=== PATIENT | female | born 1945 | race Native Hawaiian/Other Pacific Islander ===

== ENCOUNTER 2018-06-30 13:19 | Inpatient (IN) | payer MEDICARE, OTHER ==
[~2018-06-30] VITALS: Ht 154.9 cm; Wt 50.8 kg
--- NOTE | 2018-06-30 13:22 | NUR ---
[facility] FROM [facility] WITH C/O ABNORMAL LABS (ELEVALTED WBC). 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
[2018-06-30] MEDS ORDERED: ADENOSINE 6 MG/2 ML SYR IV ONE ×2 (13:33→13:45)
--- NOTE | 2018-06-30 13:50 | NUR ---
pt to ct
[2018-06-30] MEDS ORDERED: MIRT15TA7 PO (13:51)
[2018-06-30] MEDS ORDERED: FAMO20TA8 PO (13:51)
[2018-06-30] MEDS ORDERED: ATOR80TA PO (13:51)
[2018-06-30] MEDS ORDERED: DRON2.5C11 PO (13:51)
[2018-06-30] MEDS ORDERED: ACID1TAB4 PO (13:51)
[2018-06-30] MEDS ORDERED: ACET325T53 PO (13:51)
[2018-06-30] MEDS ORDERED: TIZA4TAB4 PO (13:51)
[2018-06-30] MEDS ORDERED: CALC500T3 PO (13:51)
[2018-06-30] MEDS ORDERED: BISA-79 PO (13:51)
[2018-06-30] MEDS ORDERED: MULT-225 PO (13:51)
[2018-06-30] MEDS ORDERED: BENA10TA9 PO (13:51)
[2018-06-30] MEDS ORDERED: METO25TA6 PO (13:51)
[2018-06-30] MEDS ORDERED: CEFT1VIA14 IJ (13:51)
[2018-06-30] MEDS ORDERED: POLY119P17 PO (13:51)
[2018-06-30] MEDS ORDERED: CHOL200078 PO (13:51)
[2018-06-30] MEDS ORDERED: OXYC-128 PO (13:51)
[2018-06-30] MEDS ORDERED: MAGN400T6 PO (13:51)
[2018-06-30 13:52] LABS: BASOPHILS % (AUTO) 0.2 % (0.0-2.0); EOSINOPHILS # (AUTO) 0.1 K/uL (0.0-0.7); EOSINOPHILS % (AUTO) 0.7 % (0.0-7.0); HEMOGLOBIN 14.4 g/dL (10.9-14.3); LYMPHOCYTES # (AUTO) 2.8 K/uL (20.0-40.0); LYMPHOCYTES % (AUTO) 25.5 % (20.5-51.5); MEAN CORPUSCULAR HEMOGLOBIN 30.2 uug (24.7-32.8); MEAN CORPUSCULAR HGB CONC 33 g/dL (32.3-35.6); MEAN CORPUSCULAR VOLUME 92.2 fL (75.5-95.3); MONOCYTES # (AUTO) 0.8 K/uL (2.0-10.0); MONOCYTES % (AUTO) 7.1 % (0.0-11.0); NEUTROPHILS # (AUTO) 7.2 K/uL (1.8-8.9); NEUTROPHILS % (AUTO) 66.5 % (38.5-71.5); PLATELET COUNT (AUTO) 314 K/uL (179-408); RED BLOOD CELL COUNT(AUTO) 4.77 MIL/uL (3.63-4.92); WHITE BLOOD COUNT (AUTO) 10.9 K/uL (3.8-11.8)
[2018-06-30 13:57] LABS: *BILIRUBIN,URIN NEGATIVE (NEGATIVE); *BLOOD, URINE 1+ (NEGATIVE); *CLARITY,URINE CLOUDY (CLEAR); *COLOR,URINE DARK YELLOW (YELLOW); *KETONES,URINE 2+ (NEGATIVE); *UROBILINOGEN,URINE 0.2 E.U./dl (NORMAL); LEUKOCYTE ESTERASE ,URINE 3+ (NEGATIVE); NITRITE, URINE NEGATIVE (NEGATIVE); PH,URINE 5.5 (5.0-8.0); UGLUCOSE NEGATIVE (NEGATIVE)
[2018-06-30 13:58] LABS: CARBON DIOXIDE 25 mmol/L (21-32); CHLORIDE 98 mmol/L (98-107); CREATININE 1.2 mg/dL (0.6-1.3); GLUCOSE 117 mg/dL (74-106); UREA NITROGEN, BLOOD 18 mg/dL (7-18)
[2018-06-30 14:04] LABS: ALANINE AMINOTRANSFERASE 26 U/L (14-59); ALKALINE PHOSPHATASE 133 U/L (50-136); ASPARTATE AMINOTRANSFERASE 34 U/L (15-37); BILIRUBIN,DIRECT 0.1 mg/dL (0.0-0.2); BILIRUBIN,TOTAL 0.4 mg/dL (0.2-1.0); TOTAL PROTEIN, SERUM 8.7 g/dL (6.4-8.2)
--- NOTE | 2018-06-30 14:06 | NUR ---
hands off report given to ricky yang lvn.
[2018-06-30 14:07] LABS: WBC,URINE TNTC /HPF (0-3)
[2018-06-30 14:08] LABS: BACTERIA,URINE NONE SEEN /HPF (NONE SEEN)
[2018-06-30 14:09] LABS: SQUAMOUS EPITHELIAL CELL,UR FEW /HPF (NONE SEEN); YEAST,URINE MANY /HPF (NONE SEEN)
[2018-06-30 14:10] LABS: COARSE GRANULAR CASTS,URINE 0-3 /LPF
[2018-06-30 14:26] LABS: THYROID STIMULATING HORMONE 1.489 mIU/mL (0.358-3.740)
--- NOTE | 2018-06-30 14:59 | NUR ---
pt establishing eye contact and answering guestion with single word response
[2018-06-30] MEDS ORDERED: CEFTRIAXONE 1 G VIAL ONE (15:08)
[2018-06-30] MEDS ORDERED: CEFTRIAXONE 1 G in IV DEXTROSE 5% 50 ML IV ONE (15:15)
[2018-06-30] MEDS ORDERED: IV NORMAL SALINE 1000 ML BAG IV ONE (15:15)
[2018-06-30] MEDS ORDERED: SULFAMETHOXAZOL/TRIMETHOPRI IV 20 ML in IV DEXTROSE 5% 500 ML IV ONE (15:15)
[2018-06-30] MEDS ORDERED: SULFAMETHOXAZOLE/TRIMETHOPRIM 10 ML VIAL IV ONE (15:32)
--- NOTE | 2018-06-30 16:09 | NUR ---
perineal hygiene provided for pt. small amount of bm in diaper.
--- NOTE | 2018-06-30 16:25 | NUR ---
pt transfered to floor.
[2018-06-30 16:46] VITALS: BP 160/89
[2018-06-30 20:03] VITALS: BP 163/95
[2018-06-30] MEDS ORDERED: MIRTAZAPINE 15 MG TABLET PO SCH (21:00)
[2018-06-30] MEDS ORDERED: ONDANSETRON 4 MG/2 ML VIAL IV PRN (21:00)
[2018-06-30] MEDS ORDERED: ACETAMINOPHEN 325 MG TABLET PO PRN (21:00)
--- NOTE | 2018-06-30 21:00 | NUR ---
Patient awake and alert in bed. Patient is nonverbal, not appearing in any distress at this time. IV intact and patent. Rosen catheter in place with clear, yellow urine output. Orders received from Dr. Lucio and Dr. Oropeza. Bed in lowest and locked position. Safety measures implemented. Will continue to monitor throughout shift.
[2018-06-30] MEDS: IV D5/ 0.9% NACL 1,000 ML IV PRN (21:27)
[2018-06-30] MEDS: FAMOTIDINE 20 MG TABLET PO SCH (21:35)
[2018-06-30] MEDS: ATORVASTATIN 40 MG TABLET PO SCH (21:35)
[2018-06-30] MEDS: DRONABINOL 2.5 MG CAPSULE PO SCH (21:36)
[2018-06-30] MEDS: METOPROLOL TARTRATE 25 MG TABLET PO SCH (21:46)
[2018-06-30] MEDS ORDERED: TIZANIDINE HCL 4 MG TABLET PO SCH (22:00)
[2018-07-01] VITALS: BP 127/65
[2018-07-01] MEDS: ENOXAPARIN SODIUM 40 MG/0.4 ML DISP.SYRIN SQ SCH ×2 (00:16→21:50)
[2018-07-01 04:00] VITALS: BP 154/82
--- NOTE | 2018-07-01 06:39 | NUR ---
Patient rested well in between care. Patient turned and repositioned q2hr. All needs met. Continue plan of care.
[2018-07-01 06:54] LABS: BASOPHILS % (AUTO) 0.5 % (0.0-2.0); EOSINOPHILS # (AUTO) 0.2 K/uL (0.0-0.7); LYMPHOCYTES # (AUTO) 1.2 K/uL (20.0-40.0); LYMPHOCYTES % (AUTO) 12.5 % (20.5-51.5); MEAN CORPUSCULAR HEMOGLOBIN 30.5 uug (24.7-32.8); MEAN CORPUSCULAR HGB CONC 33 g/dL (32.3-35.6); MEAN CORPUSCULAR VOLUME 93.1 fL (75.5-95.3); MONOCYTES # (AUTO) 0.4 K/uL (2.0-10.0); MONOCYTES % (AUTO) 4.4 % (0.0-11.0); NEUTROPHILS # (AUTO) 7.7 K/uL (1.8-8.9); NEUTROPHILS % (AUTO) 80.6 % (38.5-71.5); RED BLOOD CELL COUNT(AUTO) 4.06 MIL/uL (3.63-4.92); WHITE BLOOD COUNT (AUTO) 9.5 K/uL (3.8-11.8)
[2018-07-01 07:05] LABS: HEMATOCRIT 37.8 % (31.2-41.9); HEMOGLOBIN 12.4 g/dL (10.9-14.3); PLATELET COUNT (AUTO) 160 K/uL (179-408)
[2018-07-01 07:13] LABS: CARBON DIOXIDE 22 mmol/L (21-32); CHLORIDE 107 mmol/L (98-107); CHOLESTEROL 178 mg/dL (<200); CREATININE 1.1 mg/dL (0.6-1.3); GLUCOSE 132 mg/dL (74-106); HDL CHOLESTEROL 51 mg/dL (40-60); MAGNESIUM 1.7 mg/dL (1.8-2.4); PHOSPHOROUS 2.5 mg/dL (2.5-4.9); POTASSIUM 4.4 mmol/L (3.5-5.1); TRIGLYCERIDES 81 MG/DL (30-150); UREA NITROGEN, BLOOD 11 mg/dL (7-18)
[2018-07-01] MEDS ORDERED: BISACODYL 5 MG TABLET.DR PO PRN (07:30)
[2018-07-01] MEDS ORDERED: OXYCODONE/APAP 5-325 MG TABLET PO PRN (07:30)
[2018-07-01] MEDS ORDERED: ACETAMINOPHEN 325 MG TABLET PO PRN (07:30)
[2018-07-01 07:50] LABS: THYROID STIMULATING HORMONE 0.544 mIU/mL (0.358-3.740)
[2018-07-01] MEDS: MAGNESIUM OXIDE 400 MG TABLET PO SCH (08:17)
[2018-07-01] MEDS: CHOLECALCIFEROL 1,000 UNIT TABLET PO SCH (08:17)
[2018-07-01] MEDS: CALCIUM CARBONATE 500 MG TABLET PO SCH (08:17)
[2018-07-01] MEDS: MULTIVITAMINS,THERAPEUTIC TABLET PO SCH (08:17)
[2018-07-01] MEDS: DRONABINOL 2.5 MG CAPSULE PO SCH ×2 (08:17→16:51)
[2018-07-01] MEDS: METOPROLOL TARTRATE 25 MG TABLET PO SCH ×2 (08:17→21:00)
[2018-07-01] MEDS: ACIDOPHILUS/BULGARICUS CHEW TAB PO SCH ×2 (08:17→16:51)
[2018-07-01] MEDS: MIRALAX 17 GM POWD.PACK PO SCH (08:18)
[2018-07-01] MEDS: BENAZEPRIL HCL 10 MG TABLET PO SCH (08:18)
[2018-07-01] MEDS ORDERED: METOPROLOL TARTRATE 25 MG TABLET PO SCH (09:00)
[2018-07-01] MEDS ORDERED: POLYETHYLENE GLYCOL 3350 238 GM POWDER PO SCH (09:00)
[2018-07-01] MEDS ORDERED: DRONABINOL 2.5 MG CAPSULE PO SCH (09:00)
[2018-07-01] MEDS ORDERED: MAGNESIUM SULFATE/D5W 100 ML IV SCH (10:30)
[2018-07-01] MEDS: IV D5/ 0.9% NACL 1,000 ML IV PRN (10:55)
[2018-07-01 11:29] VITALS: BP 139/78
[2018-07-01] MEDS ORDERED: Z GUARD REMEDY PASTE 57 GM TUBE TOP PRN (11:30)
--- NOTE | 2018-07-01 11:30 | NUR ---
WOUND CARE CONSULT: PT PRESENTS WITH SACRAL AREA SCARRING AND STAINING OF SKIN WHICH EXTENDS TO BUTTOCKS AND RED AREA TO LEFT HEEL, PRESENT ON ADMISSION. RECOMMENDATIONS MADE FOR SKIN PROTECTION. DISCUSSED WITH NURSING STAFF. FIRST STEP LOW AIRLOSS MATTRESS ORDERED. WILL SEE PRN. BISHOP IN AGREEMENT WITH PLAN OF CARE. Addendum: 07/01/18 at 1131 by GERBER BEYER RN Amended: Links added.
[2018-07-01] MEDS: TIZANIDINE HCL 4 MG TABLET PO SCH ×2 (14:15→21:51)
[2018-07-01] MEDS: FLUCONAZOLE 200 MG/NS 100ML IV 100 MG in PREMIXED 1 EACH IV SCH (14:24)
[2018-07-01] MEDS: CEFTRIAXONE 1 G in IV DEXTROSE 5% 50 ML IV SCH (14:28)
[2018-07-01 15:22] VITALS: BP 129/78
[2018-07-01 20:00] VITALS: BP 104/55
[2018-07-01] MEDS ORDERED: MIRTAZAPINE 15 MG TABLET PO SCH (21:00)
[2018-07-01] MEDS ORDERED: FAMOTIDINE 20 MG TABLET PO SCH (21:00)
[2018-07-01] MEDS: Z GUARD REMEDY PASTE 57 GM TUBE TOP SCH (21:00)
[2018-07-01] MEDS ORDERED: ATORVASTATIN 40 MG TABLET PO SCH (21:00)
[2018-07-01] MEDS: FAMOTIDINE 20 MG TABLET PO SCH (21:50)
[2018-07-01] MEDS: ATORVASTATIN 40 MG TABLET PO SCH (21:51)
--- NOTE | 2018-07-01 22:00 | NUR ---
NOT WILLING TO ALLOW TO GO THRU [facility]KE [facility]ALE STATED " CAN'T YOU SEE THAT I WANT TO GET SOME SLEEP" THE PROMISED ME THAT i COULD HAVE ANYTHNG I WANTED" BEATRIZ WITH EQUAL STRENGTH,
[2018-07-02] VITALS (7 sets, daily range): BP systolic 100–154; BP diastolic 46–91
[2018-07-02] MEDS: IV D5/ 0.9% NACL 1,000 ML IV PRN ×2 (03:00→19:01)
[2018-07-02] MEDS: TIZANIDINE HCL 4 MG TABLET PO SCH ×3 (05:57→21:12)
[2018-07-02 06:50] LABS: BASOPHILS # (AUTO) 0.1 K/uL (0.0-8.0); BASOPHILS % (AUTO) 0.7 % (0.0-2.0); EOSINOPHILS # (AUTO) 0.2 K/uL (0.0-0.7); EOSINOPHILS % (AUTO) 3.3 % (0.0-7.0); HEMATOCRIT 32.5 % (31.2-41.9); HEMOGLOBIN 10.7 g/dL (10.9-14.3); LYMPHOCYTES # (AUTO) 1.8 K/uL (20.0-40.0); LYMPHOCYTES % (AUTO) 25.9 % (20.5-51.5); MEAN CORPUSCULAR HEMOGLOBIN 30.2 uug (24.7-32.8); MEAN CORPUSCULAR HGB CONC 33 g/dL (32.3-35.6); MEAN CORPUSCULAR VOLUME 92.1 fL (75.5-95.3); MONOCYTES # (AUTO) 0.5 K/uL (2.0-10.0); MONOCYTES % (AUTO) 6.7 % (0.0-11.0); NEUTROPHILS # (AUTO) 4.5 K/uL (1.8-8.9); NEUTROPHILS % (AUTO) 63.4 % (38.5-71.5); PLATELET COUNT (AUTO) 198 K/uL (179-408); RED BLOOD CELL COUNT(AUTO) 3.53 MIL/uL (3.63-4.92); WHITE BLOOD COUNT (AUTO) 7.1 K/uL (3.8-11.8)
--- NOTE | 2018-07-02 07:00 | NUR ---
HAD UNEVENTFUL NIGHT SLEPT OFF/ON, NO DISTRESS NOTED.
[2018-07-02 07:08] LABS: ALANINE AMINOTRANSFERASE 18 U/L (14-59); ALKALINE PHOSPHATASE 97 U/L (50-136); ASPARTATE AMINOTRANSFERASE 16 U/L (15-37); BILIRUBIN,TOTAL 0.3 mg/dL (0.2-1.0); CARBON DIOXIDE 22 mmol/L (21-32); CHLORIDE 108 mmol/L (98-107); CREATININE 1.1 mg/dL (0.6-1.3); GLUCOSE 132 mg/dL (74-106); MAGNESIUM 2.1 mg/dL (1.8-2.4); PHOSPHOROUS 1.8 mg/dL (2.5-4.9); POTASSIUM 3.7 mmol/L (3.5-5.1); TOTAL PROTEIN, SERUM 6.5 g/dL (6.4-8.2); UREA NITROGEN, BLOOD 7 mg/dL (7-18)
--- NOTE | 2018-07-02 07:38 | NUR ---
Patient resting comfortably in bed at this time. no signs of distress. bedrest. A/Ox1. SR on telemetry. RA. IVF running. call light within reach of patient. bed alarm on. safety measures implemented. will continue to monitor.
[2018-07-02] MEDS: CHOLECALCIFEROL 1,000 UNIT TABLET PO SCH (08:46)
[2018-07-02] MEDS: ACIDOPHILUS/BULGARICUS CHEW TAB PO SCH ×2 (08:47→16:27)
[2018-07-02] MEDS: MAGNESIUM OXIDE 400 MG TABLET PO SCH (08:47)
[2018-07-02] MEDS: DRONABINOL 2.5 MG CAPSULE PO SCH ×2 (08:47→16:27)
[2018-07-02] MEDS: METOPROLOL TARTRATE 25 MG TABLET PO SCH ×2 (08:47→20:15)
[2018-07-02] MEDS: CALCIUM CARBONATE 500 MG TABLET PO SCH (08:48)
[2018-07-02] MEDS: MIRALAX 17 GM POWD.PACK PO SCH (08:48)
[2018-07-02] MEDS: MULTIVITAMINS,THERAPEUTIC TABLET PO SCH (08:48)
[2018-07-02] MEDS: BENAZEPRIL HCL 10 MG TABLET PO SCH (08:48)
[2018-07-02] MEDS: Z GUARD REMEDY PASTE 57 GM TUBE TOP SCH ×2 (08:49→21:12)
[2018-07-02] MEDS: CEFTRIAXONE 1 G in IV DEXTROSE 5% 50 ML IV SCH (14:06)
[2018-07-02 15:07] LABS: A/G RATIO 0.9 (0.7-1.7); ALBUMIN 3.2 g/dL (2.9-4.4); ALPHA-1-GLOBULIN 0.3 g/dL (0.0-0.4); ALPHA-2-GLOBULIN 1.1 g/dL (0.4-1.0); BETA GLOBULIN 0.9 g/dL (0.7-1.3); GAMMA GLOBULIN 1.3 g/dL (0.4-1.8); GLOBULIN, TOTAL 3.6 g/dL (2.2-3.9); M-SPIKE Not Observed g/dL (Not Observed)
[2018-07-02] MEDS ORDERED: NEUTRA PHOS PACKET PO ONE (15:45)
[2018-07-02] MEDS: FLUCONAZOLE 200 MG/NS 100ML IV 100 MG in PREMIXED 1 EACH IV SCH (15:50)
--- NOTE | 2018-07-02 18:14 | NUR ---
patient resting comfortably in bed. IVF running. no signs of distress. no significant changes throughout shift. ABX administered. Wound care provided. SR on telemetry. Rosen in-place, intact, patent. Bed alarm on, call light within reach. KCI mattress on. safety measures implemented. will continue to monitor until end of shift.
[2018-07-02] MEDS: FAMOTIDINE 20 MG TABLET PO SCH (20:11)
[2018-07-02] MEDS: ATORVASTATIN 40 MG TABLET PO SCH (20:14)
[2018-07-02] MEDS: ENOXAPARIN SODIUM 40 MG/0.4 ML DISP.SYRIN SQ SCH (20:16)
[2018-07-03 03:23] VITALS: BP 168/82
[2018-07-03] MEDS: TIZANIDINE HCL 4 MG TABLET PO SCH ×2 (05:26→14:03)
--- NOTE | 2018-07-03 06:04 | NUR ---
received patient resting in bed. patient is alert and oriented x1. Patient is compliant with medication administration and medical care/treatment. IV fluids running. New IV has been in placed in right wrist with 20 gauge. Patient has 2 watery stools during the shift.Will endorse to oncoming nurse for third episode of watery stool and follow c.diff protocol. Patient denies any pain. No respiratory distress or comfort noted through out the shift. Patient temperature elevated to 99.1 Fahrenheit. Tylenol was given to patient and latest temperature was 97.9. Will continue to monitoe and endorse POC to oncoming shift nurse.
[2018-07-03 06:31] LABS: BASOPHILS # (AUTO) 0.1 K/uL (0.0-8.0); BASOPHILS % (AUTO) 0.7 % (0.0-2.0); EOSINOPHILS # (AUTO) 0.2 K/uL (0.0-0.7); EOSINOPHILS % (AUTO) 3.7 % (0.0-7.0); HEMATOCRIT 35.3 % (31.2-41.9); HEMOGLOBIN 11.7 g/dL (10.9-14.3); LYMPHOCYTES # (AUTO) 1.9 K/uL (20.0-40.0); LYMPHOCYTES % (AUTO) 28.5 % (20.5-51.5); MEAN CORPUSCULAR HEMOGLOBIN 30.4 uug (24.7-32.8); MEAN CORPUSCULAR HGB CONC 33 g/dL (32.3-35.6); MEAN CORPUSCULAR VOLUME 91.9 fL (75.5-95.3); MONOCYTES # (AUTO) 0.5 K/uL (2.0-10.0); MONOCYTES % (AUTO) 6.9 % (0.0-11.0); NEUTROPHILS % (AUTO) 60.2 % (38.5-71.5); PLATELET COUNT (AUTO) 232 K/uL (179-408); RED BLOOD CELL COUNT(AUTO) 3.84 MIL/uL (3.63-4.92); WHITE BLOOD COUNT (AUTO) 6.7 K/uL (3.8-11.8)
[2018-07-03 07:02] LABS: IRON, SERUM 48 ug/dL (50-175)
[2018-07-03 07:22] LABS: ALANINE AMINOTRANSFERASE 21 U/L (14-59); ALKALINE PHOSPHATASE 112 U/L (50-136); ASPARTATE AMINOTRANSFERASE 20 U/L (15-37); BILIRUBIN,TOTAL 0.2 mg/dL (0.2-1.0); CARBON DIOXIDE 24 mmol/L (21-32); CHLORIDE 108 mmol/L (98-107); FERRITIN 322 ng/mL (8-252); GLUCOSE 108 mg/dL (74-106); MAGNESIUM 1.9 mg/dL (1.8-2.4); PHOSPHOROUS 2.3 mg/dL (2.5-4.9); TOTAL PROTEIN, SERUM 7.2 g/dL (6.4-8.2); UREA NITROGEN, BLOOD 7 mg/dL (7-18)
[2018-07-03] MEDS: DRONABINOL 2.5 MG CAPSULE PO SCH ×2 (08:32→17:23)
[2018-07-03] MEDS: CHOLECALCIFEROL 1,000 UNIT TABLET PO SCH (08:34)
[2018-07-03] MEDS: CALCIUM CARBONATE 500 MG TABLET PO SCH (08:35)
[2018-07-03] MEDS: ACIDOPHILUS/BULGARICUS CHEW TAB PO SCH (08:35)
[2018-07-03] MEDS: BENAZEPRIL HCL 10 MG TABLET PO SCH (08:35)
[2018-07-03] MEDS: MAGNESIUM OXIDE 400 MG TABLET PO SCH (08:35)
[2018-07-03] MEDS: METOPROLOL TARTRATE 25 MG TABLET PO SCH (08:36)
[2018-07-03] MEDS: MULTIVITAMINS,THERAPEUTIC TABLET PO SCH (08:36)
[2018-07-03] MEDS: MIRALAX 17 GM POWD.PACK PO SCH (08:36)
[2018-07-03] MEDS: IV D5/ 0.9% NACL 1,000 ML IV PRN (08:37)
[2018-07-03] MEDS ORDERED: POLY17PO4 PO (08:41)
[2018-07-03] MEDS: Z GUARD REMEDY PASTE 57 GM TUBE TOP SCH (08:43)
[2018-07-03] MEDS ORDERED: SODIUM PHOSPHATE MM 5 MM in IV DEXTROSE 5% 100 ML IV ONE ×2 (09:00→09:30)
--- NOTE | 2018-07-03 09:11 | NUR ---
RECEIVED PATIENT IN BED, AWAKE, AAOX1, NO ACUTE DISTRESS NOTED. IV ACCESS IN THE RIGHT WRIST #20 RUNNING D5NS @75 CC/HR, INFUSING WELL. O2 SAT WNL, ON ROOM AIR, FC IN PLACE DRAINING CLEAR YELLOW URINE. ON AIR MATTRESS, COMFORT MEASURES PROVIDED. CALL LIGHT WITHIN REACH. WILL CONTINUE TO MONITOR CLOSELY.
[2018-07-03 11:04] VITALS: BP 116/77
[2018-07-03] MEDS ORDERED: NEUTRA PHOS PACKET PO ONE (11:15)
[2018-07-03 15:03] VITALS: BP 110/61
--- NOTE | 2018-07-03 18:10 | NUR ---
DISCHARGED PATIENT IN STABLE CONDITION TO [facility]. REPORT GIVEN TO JOELLE HERNANDEZ. DISHARGE PAPERS AND INSTRUCTIONS WITH PATIENT. IV ACCESS REMOVED WELL TOLERATED. DC PICTURES TAKEN AND PLACED IN CHART. LEFT HOSPITAL ACCOMPANIED BY 2 EMT VIA AMBULANCE.
[2018-07-07] MEDS ORDERED: MIRTAZAPINE 15 MG TABLET PO SCH (21:00)
== END 2018-07-03 18:15 | DRG 871 ==
LOC: ER 13:19 → TELE3 16:11 → MEDSURG3 07-03 13:18
PROVIDERS: ADMIT Internal Medicine Nephrology; ATTEND Internal Medicine
PROC: 3E033RZ Introduction of Antiarrhythmic into Peripheral Vein, Percutaneous Approach (ICD-10-PCS; principal; 2018-06-30)
DX: A41.9 Sepsis, unspecified organism (principal); G92 Toxic encephalopathy; B37.49 Other urogenital candidiasis; I47.1 Supraventricular tachycardia; J98.11 Atelectasis; R65.20 Severe sepsis without septic shock; N31.9 Neuromuscular dysfunction of bladder, unspecified; E78.5 Hyperlipidemia, unspecified; Z79.899 Other long term (current) drug therapy; Z86.73 Personal history of transient ischemic attack (TIA), and cerebral infarction without residual deficits; Z88.0 Allergy status to penicillin; K21.9 Gastro-esophageal reflux disease without esophagitis; E11.9 Type 2 diabetes mellitus without complications; L90.5 Scar conditions and fibrosis of skin; L89.621 Pressure ulcer of left heel, stage 1; I10 Essential (primary) hypertension; F03.90 Unspecified dementia, unspecified severity, without behavioral disturbance, psychotic disturbance, mood disturbance, and anxiety; E86.0 Dehydration; D64.9 Anemia, unspecified; I67.2 Cerebral atherosclerosis; D50.0 Iron deficiency anemia secondary to blood loss (chronic)
CPT/HCPCS: 36415; 70030-TC; 70450; 71045; 83550; 83605; 83735; 84100; 84155; 84165; 84443; 85025; 85730; 87040; 87086; 93005; 93307; 93880; A4663; G0378; J0153; J0696; J1450; J1650; J3475; J3490; J7030; J7040; J7042; J7060; Q0167